=== PATIENT | female | born 1990 | race Caucasian/White ===

== ENCOUNTER 2017-03-03 10:57 | Emergency (ER) | payer BC ==
[2017-03-03 11:14] VITALS: TEMP 98.8; O2SAT 95
[2017-03-03] MEDS ORDERED: ONDANSETRON 4 MG/2 ML VIAL IVP ONE ×2 (11:24→13:20)
[2017-03-03] MEDS ORDERED: NS 1,000 ML IV ONE ×2 (11:24→11:59)
--- NOTE | 2017-03-03 11:28 | EDPHY ---
H & P Time Seen by Provider: 03/03/17 11:12 HPI/ROS: HPI Abdominal pain. Nausea. 26-year-old female by private vehicle with her mother. This patient reports that she woke at 4:30 a.m. this morning with left lower abdominal pain described as sharp and cramping radiating to the center lower abdomen and right lower quadrant. She reports that she has had similar pain in the past with constipation. She did have a bowel movement at 7:30 a.m. but with no relief. No bloody or melenic stool. No diarrhea. No fever. She has not vomited. Last menstrual period was 6 months ago. She has a Mirena IUD. Prior abdominal surgical history includes cholecystectomy. ROS: Constitutional: No fever, no chills. No weakness. ENT: No sore throat. No nasal congestion or rhinorrhea. Respiratory: No cough. No shortness of breath. Cardiac: No chest pain, no palpitations. Gastrointestinal: As above, no vomiting, no diarrhea. Genitourinary: No hematuria. No dysuria or increased frequency with urination. Musculoskeletal: No back pain. No neck pain. No myalgias or arthralgias. Skin: No rashes. Neurological: No headache. No focal weakness or altered sensation. Past medical history: As above. Social history: Here with her mother. Nonsmoker. No alcohol. Physical Exam: General Appearance: Alert, no distress. This patient is responding to questions appropriately and in full sentences. This patient appears well- hydrated and well-nourished. Eyes: Pupils equal and round no pallor or injection. No lid edema, erythema or injection. Respiratory: There are no retractions, lungs are clear to auscultation with good air movement bilaterally. Cardiovascular: Regular rate and rhythm. No murmur. Gastrointestinal: Abdomen is soft with mild to moderate left lower quadrant/ left adnexal tenderness on palpation, no masses, bowel sounds normal. No focal tenderness at McBurney's point. No Mclaughlin sign. Neurological: Motor sensory function is grossly intact. Cranial nerves are normal. Gait is normal. Skin: Warm and dry, no rashes. Musculoskeletal: Neck is supple and nontender. Extremities are symmetrical. All joints range without pain or impingement. Psychiatric: No agitation. No depression. Database: EKG: Imaging: Pelvic ultrasound: Some free fluid in the cul-de-sac. Possible ruptured ovarian cyst. Otherwise good flow to both ovaries. No evidence of torsion. Stool and bowel gas noted by radiologist. No other abnormalities. Right lower quadrant ultrasound: The appendix was not visualized. Results of ultrasound discussed with staff radiologist Dr. Jorge Luis Benson. CT scan of abdomen and pelvis with IV contrast: Normal study. Moderate stool noted. Appendix was well seen and normal. No volvulus. No other pathology. IUD in place. Results were discussed with staff radiologist Dr. Jorge Luis Benson. Procedures: Emergency department course: IV placed. Vital signs reviewed by myself. Patient noted to be tachycardic. She reports feeling anxious. She was started on IV normal saline with 1 L to be given over the next hour. She was initially given 4 mg of IV Zofran. She declines pain medication at this time. 1:30 p.m., patient re-evaluated. Results of blood work, urinalysis and ultrasounds discussed. Diagnosis of probable ruptured left-sided ovarian cyst discussed. The patient reports that she still feels nauseous and is still having some pain. Repeat abdominal exam she is soft but has to diffuse lower abdominal and periumbilical tenderness on palpation which is mild to moderate. She will now be given 0.5 mg of IV hydromorphone. She will be continued on IV fluids and CT abdomen and pelvis with IV contrast will be obtained to evaluate for possible appendicitis versus volvulus or other pathology. She and family endorse this plan. 2:25 p.m., patient doing much better at this time. Resting comfortably. Heart rate 95. Repeat abdominal exam she is soft, nontender nondistended. Discussed results of her CT scan with her and family. The differential diagnosis was reviewed with her. At this time she feels comfortable going home. I feel she is safe for discharge with precautions. Follow-up and return to emergency department precautions reviewed with her. All of her questions were answered. She was discharged home in good condition with family who are driving. Differential Diagnosis: The differential diagnosis on this patient includes but is not limited to ovarian cyst, urinary tract infection, constipation. Sigmoid volvulus, appendicitis, diverticulitis, ovarian torsion unlikely. This represents a partial list of diagnoses considered. These considerations are based on history , physical exam, past history, reassessment and diagnostic testing. Smoking Status: Never smoked Constitutional: Initial Vital Signs Temperature (C) 37.1 C 03/03/17 11:11 Heart Rate 120 H 03/03/17 11:11 Respiratory Rate 20 03/03/17 11:11 Blood Pressure 124/89 H 03/03/17 11:11 O2 Sat (%) 95 03/03/17 11:11 O2 Delivery Mode Room Air Allergies/Adverse Reactions: adhesive tape Allergy (Verified 03/03/17 11:15) benzoyl peroxide Allergy (Verified 03/03/17 11:15) Home Medications: Medication Instructions Recorded MIRENA 03/03/17 Ondansetron Odt [Zofran Odt 4 mg 4 mg PO Q4PRN PRN #10 tab 03/03/17 (*)] ZYRTEC 03/03/17 Medical Decision Making - Diagnostics Imaging Results: Imaging Impressions Abdomen Ultrasound 03/03/17 11:24 Impression: Appendix not identified. Findings discussed with Emergency Department physician, Jose G Renee MD, at 1309 hours, 03/03/2017. Final report concurs with initial preliminary interpretation. Pelvic/Renal Ultrasound 03/03/17 11:24 Impression: 1. IUD appears in good position with fluid in the endocervical canal. 2. No ovarian torsion. 3. A small amount of free fluid in the pelvis. 4. No adnexal masses. Findings and recommendations discussed with Emergency Department physician, Jose G Renee MD at 13:11 hour, 03/03/2017. Final report concurs with initial preliminary interpretation. Abdomen CT 03/03/17 13:30 Impression: 1. Mild Constipation. 2. No CT evidence of appendicitis, abscess or bowel obstruction. 3. No volvulus. 4. IUD appears in good position. Findings and recommendations discussed with Emergency Department physician, Jose G Renee MD at 14:21 hour, 03/03/2017. Final report concurs with initial preliminary interpretation. - Data Points Laboratory Results: Laboratory Results 03/03/17 11:45 03/03/17 11:45 03/03/17 03/03/17 03/03/17 13:00 11:45 11:45 WBC RBC Hgb Hct MCV MCH MCHC RDW Plt Count MPV Neut % (Auto) Lymph % (Auto) [place] % (Auto) Eos % (Auto) Baso % (Auto) Nucleat RBC Rel Count Absolute Neuts (auto) Absolute Lymphs (auto) Absolute Monos (auto) Absolute Eos (auto) Absolute Basos (auto) Absolute Nucleated RBC Immature Gran % Immature Gran # Sodium 141 mEq/L mEq/L (134-144) Potassium 4.0 mEq/L mEq/L (3.5-5.2) Chloride 103 mEq/L mEq/L (97-110) Carbon Dioxide 24 mEq/l mEq/l (22-31) Anion Gap 14 mEq/L mEq/L (8-16) BUN 13 mg/dL mg/dL (7-23) Creatinine 0.8 mg/dL mg/dL (0.6-1.0) Estimated GFR > 60 Glucose 106 mg/dL H mg/dL (70-100) Calcium 9.6 mg/dL mg/dL (8.5-10.4) Beta HCG, Qual NEGATIVE Urine Color YELLOW Urine Appearance CLEAR Urine pH 6.5 (5.0-7.5) Ur Specific [place] 1.025 (1.002-1.030) Urine Protein NEGATIVE (NEGATIVE) Urine Ketones NEGATIVE (NEGATIVE) Urine Blood NEGATIVE (NEGATIVE) Urine Nitrate NEGATIVE (NEGATIVE) Urine Bilirubin NEGATIVE (NEGATIVE) Urine Urobilinogen 0.2 EU EU (0.2-1.0) Ur Leukocyte Esterase NEGATIVE (NEGATIVE) Urine RBC 1-3 /hpf /hpf (0-3) Urine WBC 0-1 /hpf /hpf (0-3) Ur Epithelial Cells 2+ /lpf H /lpf (NONE-1+) Urine Bacteria TRACE /hpf H /hpf (NONE SEEN) Urine Mucus 3+ /lpf H /lpf (NONE-1+) Urine Glucose NEGATIVE (NEGATIVE) 03/03/17 11:45 WBC 7.83 10^3/uL 10^3/uL (3.80-9.50) RBC 5.16 10^6/uL 10^6/uL (4.18-5.33) Hgb 16.3 g/dL g/dL (12.6-16.3) Hct 46.6 % % (38.0-47.0) MCV 90.3 fL fL (81.5-99.8) MCH 31.6 pg pg (27.9-34.1) MCHC 35.0 g/dL g/dL (32.4-36.7) RDW 12.0 % % (11.5-15.2) Plt Count 277 10^3/uL 10^3/uL (150-400) MPV 9.4 fL fL (8.7-11.7) Neut % (Auto) 83.9 % H % (39.3-74.2) Lymph % (Auto) 9.2 % L % (15.0-45.0) [place] % (Auto) 5.9 % % (4.5-13.0) Eos % (Auto) 0.4 % L % (0.6-7.6) Baso % (Auto) 0.3 % % (0.3-1.7) Nucleat RBC Rel Count 0.0 % % (0.0-0.2) Absolute Neuts (auto) 6.58 10^3/uL H 10^3/uL (1.70-6.50) Absolute Lymphs (auto) 0.72 10^3/uL L 10^3/uL (1.00-3.00) Absolute Monos (auto) 0.46 10^3/uL 10^3/uL (0.30-0.80) Absolute Eos (auto) 0.03 10^3/uL 10^3/uL (0.03-0.40) Absolute Basos (auto) 0.02 10^3/uL 10^3/uL (0.02-0.10) Absolute Nucleated RBC 0.00 10^3/uL 10^3/uL (0-0.01) Immature Gran % 0.3 % % (0.0-1.1) Immature Gran # 0.02 10^3/uL 10^3/uL (0.00-0.10) Sodium Potassium Chloride Carbon Dioxide Anion Gap BUN Creatinine Estimated GFR Glucose Calcium Beta HCG, Qual Urine Color Urine Appearance Urine pH Ur Specific [place] Urine Protein Urine Ketones Urine Blood Urine Nitrate Urine Bilirubin Urine Urobilinogen Ur Leukocyte Esterase Urine RBC Urine WBC Ur Epithelial Cells Urine Bacteria Urine Mucus Urine Glucose Medications Given: Discontinued Medications Hydromorphone HCl (Dilaudid) 0.5 mg IVP EDNOW ONE Stop: 03/03/17 13:31 Last Admin: 03/03/17 13:50 Dose: 0.5 mg Sodium Chloride (Ns) 1,000 mls @ 0 mls/hr IV EDNOW ONE; Wide Open PRN Reason: Protocol Stop: 03/03/17 11:25 Last Admin: 03/03/17 11:54 Dose: 1,000 mls Ondansetron HCl (Zofran) 4 mg IVP EDNOW ONE Stop: 03/03/17 11:25 Last Admin: 03/03/17 11:54 Dose: 4 mg Ondansetron HCl (Zofran) 4 mg IVP EDNOW ONE Stop: 03/03/17 13:21 Last Admin: 03/03/17 13:25 Dose: 4 mg Departure - Departure Disposition: Home, Routine, Self-Care Clinical Impression: Lower abdominal pain, Nausea, Possible ruptured ovarian cyst Condition: Good Instructions: Acute Nausea and Vomiting (ED), Abdominal Pain (ED) Additional Instructions: Read and follow provided instructions. Follow-up with your primary care physician tomorrow for re-evaluation. Ibuprofen dosin mg every 6 hours with meals for the next 3 days only. Return to the emergency department for worsening pain, fever, vomiting, blood in stool or other serious concerns. Referrals: TREY BARRIOS [Primary Care Provider] - As per Instructions Prescriptions: Ondansetron Odt [Zofran Odt 4 mg (*)] 4 mg PO Q4PRN PRN #10 tab PRN Reason: For Nausea & Vomiting
[2017-03-03 11:55] LABS: % IMMATURE GRANULYOCYTES 0.3 % (0.0-1.1); ABSOLUTE IMMATURE GRANULOCYTES 0.02 10^3/uL (0.00-0.10); ADD DIFF? NO; ADD MORPH? NO; ADD SCAN? NO; ATYPICAL LYMPHOCYTE FLAG 0 (0-99); FRAGMENT RBC FLAG 0 (0-99); HEMATOCRIT 46.6 % (38.0-47.0); HEMOGLOBIN 16.3 g/dL (12.6-16.3); LEFT SHIFT FLG 0 (0-99); LIPEMIA HEMOLYSIS FLAG 90 (0-99); MEAN CELL HEMOGLOBIN 31.6 pg (27.9-34.1); MEAN CELL VOLUME 90.3 fL (81.5-99.8); MEAN PLATELET VOLUME 9.4 fL (8.7-11.7); PLATELET CLUMPS FLAG 0 (0-99); PLATELET COUNT 277 10^3/uL (150-400); RED BLOOD CELL COUNT 5.16 10^6/uL (4.18-5.33)
[2017-03-03 12:11] LABS: ANION GAP 14 mEq/L (8-16); CALCIUM 9.6 mg/dL (8.5-10.4); CARBON DIOXIDE 24 mEq/l (22-31); CHLORIDE 103 mEq/L (97-110); CREATININE 0.8 mg/dL (0.6-1.0); GLOMERULAR FILTRATION RATE > 60; GLUCOSE 106 mg/dL (70-100); SODIUM 141 mEq/L (134-144)
[2017-03-03 13:13] LABS: COLOR YELLOW; LEUKOCYTE ESTERASE,URINE NEGATIVE (NEGATIVE); NITRITE,URINE NEGATIVE (NEGATIVE); PH,URINE 6.5 (5.0-7.5)
[2017-03-03 13:20] LABS: MUCUS 3+ /lpf (NONE-1+); WBC,URINE 0-1 /hpf (0-3)
[2017-03-03 13:21] LABS: BACTERIA TRACE /hpf (NONE SEEN)
[2017-03-03] MEDS ORDERED: HYDROmorphONE/DILAUDID 1 MG/ML INJ IVP ONE (13:30)
[2017-03-03] MEDS ORDERED: IOPAMIDOL (ISOVUE-300) 100 ML BTL ONE (13:36)
[2017-03-03 13:55] VITALS: RESP 16
[2017-03-03 15:18] VITALS: BP 106/59; PULSE 112
== END 2017-03-03 15:00 | disposition home or self-care (01) ==
LOC: CED 10:57
PROC: 3E0337Z Introduction of Electrolytic and Water Balance Substance into Peripheral Vein, Percutaneous Approach (ICD-10-PCS; principal; 2017-03-03)
DX: R10.32 Left lower quadrant pain (principal); R11.0 Nausea; E86.9 Volume depletion, unspecified
CPT/HCPCS: 74177-PO; 76705-PO; 76856-PO; 80048-PO; 81003-PO; 81015-PO; 84703-PO; 85025-PO; 96374; J1170; J2405; Q9967

== ENCOUNTER → 2017-07-18 | Outpatient (CLI) | payer BC | LOC: BMCIMAGING 10:01 | PROVIDERS: ATTEND Psychiatry & Neurology Neurology | DX: R22.31 Localized swelling, mass and lump, right upper limb (principal) ==